=== PATIENT | female | born 1955 | race American Indian/Alaskan Native ===

== ENCOUNTER 2016-10-20 13:05 | Observation (INO) | payer MEDICARE, MEDICAID ==
[2016-10-20] MEDS ORDERED: Zolpidem 5 MG Tab PO PRN (14:34)
[2016-10-20] MEDS ORDERED: Acetaminophen 325 MG Tab PO PRN (14:34)
[2016-10-20] MEDS ORDERED: Ondansetron 4 MG Tab.DIS PO PRN (14:34)
[2016-10-20] MEDS ORDERED: Polyethylene Glycol 3350 Powder 17 GM Packet PO PRN (14:34)
[2016-10-20] MEDS ORDERED: Docusate Sodium 100 MG Cap PO PRN (14:34)
[2016-10-20] MEDS ORDERED: Sodium Chloride 0.9% 10 ML Syringe FLUSH PRN (14:34)
--- NOTE | 2016-10-20 14:34 | PCM.HP ---
[id number] Hyperglycemia, acute renal failure Source of Information: Patient, Provider (Dr. Foster) - History of Present Illness Initial Comments - Free Text/Narative: The patient is a 61-year-old lady who has a history of diabetes. She has been using Lantus and NovoLog combination. She says her blood sugars usually run in the 100 150 range. She is checking her blood sugars every 1-2 days. She does have a history of medication noncompliance but she states that she has been using her insulin as prescribed. She was seen at the clinic for regular follow-up. She says last time she checked her blood sugar was about 36 hours ago and it was 150. In the clinic her blood sugar was recorded above 500. Her creatinine has also significantly increased from prior. She denies any cough, chest pain, urinary burning. She has been eating and drinking well. - Related Data Allergies/Adverse Reactions: Allergies Allergy/AdvReac Type Severity Reaction Status Date / Time No Known Allergies Allergy Verified 10/20/16 14:24 Home Medications: Home Meds Carvedilol 3.125 mg PO BID 07/18/13 [History] DULoxetine HCl [Cymbalta] 60 mg PO BID 07/18/13 [History] Famotidine [Famotidine] 20 mg PO BID 07/18/13 [History] Insulin Aspart [NovoLOG] 14 units SUBCUT TIDMEALS 07/18/13 [History] LORazepam [Ativan] 0.5 mg PO BID 07/18/13 [History] Pregabalin [Lyrica] 75 mg PO BID 07/18/13 [History] Simvastatin [Simvastatin] 10 mg PO BEDTIME 07/18/13 [History] Acetaminophen 325 mg PO ASDIRECTED PRN 10/20/16 [History] Aspirin 81 mg PO BRK 10/20/16 [History] Clopidogrel [Plavix] 75 mg PO DAILY 10/20/16 [History] Insulin Detemir [Levemir Flextouch] 14 unit SQ BEDTIME 10/20/16 [History] traMADol [Ultram] 50 mg PO Q8H 10/20/16 [History] Past Medical History HEENT History: Reports: Impaired Vision, Sinusitis Other HEENT History: wear reading glasses Cardiovascular History: Reports: High Cholesterol, Hypertension, Pacemaker Gastrointestinal History: Reports: Bowel Obstruction 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: Neurological History: Reports: Neuropathy, Diabetic Psychiatric History: Reports: Anxiety Endocrine/Metabolic History: Reports: Diabetes, Type II Social & Family History - Family History Cardiac: Reports: High Cholesterol, Hypertension Respiratory: Reports: Asthma, COPD Other Respiratory Family Hisory: Sisters Endocrine/Metabolic: Reports: Diabetes, type II - Tobacco Use Smoking Status *Q: Never Smoker Second Hand Smoke Exposure: No - Alcohol Use Days Per Week of Alcohol Use: 0 (none) - Recreational Drug Use Recreational Drug Use: No - Living Situation & Occupation Living situation: Reports: with Family Occupation: Retired H&P Review of Systems - Review of Systems: Review Of Systems: See Below General: Denies: Fever, Chills Pulmonary: Denies: Shortness of Breath Cardiovascular: Denies: Chest Pain Gastrointestinal: Denies: Abdominal Pain, Nausea Genitourinary: Denies: Dysuria Psychiatric: Denies: Confusion Neurological: Denies: Confusion, Dizziness, Headache Exam - Exam Exam: See Below - Vital Signs Vital Signs: Last Vital Signs Temp 36.1 C 10/20/16 13:57 Pulse 75 10/20/16 13:57 Resp 20 10/20/16 13:57 BP 151/82 H 10/20/16 13:57 Pulse Ox Weight: 57.697 kg - Exam General: Alert, Oriented Neck: Supple Lungs: Clear to Auscultation Cardiovascular: Regular Rate GI/Abdominal Exam: Normal Bowel Sounds, Soft, Non-Tender Back Exam: Normal Inspection Extremities: Normal Inspection, Other (Left foot third toe tender to touch) - Patient Data Lab Results Last 24 hrs: Results for LIZETTE MCGARRY ( ) as of 10/20/2016 14:32 Ref. Range 10/20/2016 09:27 WBC Latest Ref Range: 3.60 - 11.00 K/uL 7.20 RBC Latest Ref Range: 3.80 - 5.40 M/uL 3.72 (L) Hemoglobin Latest Ref Range: 12.0 - 16.0 g/dL 11.6 (L) Hematocrit Latest Ref Range: 35.0 - 49.0 % 33.5 (L) MCV Latest Ref Range: 80.0 - 100.0 fL 89.9 MCH Latest Ref Range: 26.0 - 34.0 pg 31.1 MCHC Latest Ref Range: 32.0 - 36.0 g/dL 34.5 Platelets Latest Ref Range: 150 - 450 K/L 219 Results for LIZETTE MCGARRY ( ) as of 10/20/2016 14:32 Ref. Range 10/20/2016 09:27 BUN Latest Ref Range: 7 - 18 mg/dL 46 (H) Sodium Latest Ref Range: 136 - 145 mmol/L 129 (L) Potassium Latest Ref Range: 3.5 - 5.1 mmol/L 4.9 Chloride Latest Ref Range: 98 - 107 mmol/L 96 (L) CO2 Latest Ref Range: 21.0 - 32.0 mmol/L 27.4 SERUM GLUCOSE Latest Ref Range: 70 - 99 mg/dL 566 (HH) Creatinine Latest Ref Range: 0.6 - 1.0 mg/dL 1.8 (H) Calcium Latest Ref Range: 8.5 - 10.1 mg/dL 8.5 ANION GAP Latest Ref Range: 5.0 - 13.0 mmol/L 5.6 GFR Calculated Latest Units: mL/min/1.73 sq m 29 Cholesterol Latest Units: mg/dL 184 Triglycerides Latest Ref Range: <150 mg/dL 182 (H) HDL Latest Units: mg/dL 72 LDL Cholesterol Calculated Latest Units: mg/dL 76 Chol/HDL Ratio Unknown 2.6 *Q Meaningful Use (ADM) - VTE *Q VTE Criteria *Q: - Stroke *Q Stroke Criteria *Q: - AMI *Q AMI Criteria *Q: - Problem List (1) Hyperglycemia SNOMED Code(s): 21660333 ICD Code: R73.9 - HYPERGLYCEMIA, UNSPECIFIED Status: Acute (2) Kidney failure, acute SNOMED Code(s): 24539958 ICD Code: N17.9 - ACUTE KIDNEY FAILURE, UNSPECIFIED Status: Acute Qualifiers: Acute renal failure type: unspecified Qualified Code(s): N17.9 - Acute kidney failure, unspecified Problem List Initiated/Reviewed/Updated: Yes Assessment/Plan Comment:: Hyperglycemia in a patient with diabetes, history of noncompliance It is unclear if this is due to patient's noncompliance versus uncontrolled blood sugar that needs medication adjustment. For now I will resume on home medications. Monitor blood sugars and adjust as needed Use Lantus and Humalog combination. IV hydration. Acute renal failure Likely due to dehydration due to hyperglycemia. Will give IV fluid and follow renal function
[2016-10-20] MEDS ORDERED: traMADol 50 MG Tab PO PRN (16:26)
[2016-10-20] MEDS: Aspirin 81 MG Tab.Chew PO SCH (18:04)
[2016-10-20] MEDS: Insulin Aspart 100 Units/ML 3 ML Pen SUBCUT SCH ×2 (18:06)
[2016-10-20] MEDS: Carvedilol 3.125 MG Tab PO SCH (18:07)
[2016-10-20] MEDS ORDERED: Famotidine 20 MG Tab PO SCH (21:00)
[2016-10-20] MEDS ORDERED: Insulin Detemir 100 Units/ML 3 ML Pen SUBCUT SCH (21:00)
[2016-10-20] MEDS: LORazepam 0.5 MG Tab PO SCH (21:30)
[2016-10-20] MEDS: Pregabalin 75 MG Cap PO SCH (21:30)
[2016-10-20] MEDS: DULoxetine 30 MG Cap PO SCH (21:31)
[2016-10-20] MEDS: Simvastatin 10 MG Tab PO SCH (21:32)
[2016-10-20] MEDS: Heparin Sodium 5,000 Units/ML Vial SUBCUT SCH (21:32)
[2016-10-21] MEDS: Heparin Sodium 5,000 Units/ML Vial SUBCUT SCH ×3 (05:54→21:01)
[2016-10-21] MEDS: Insulin Aspart 100 Units/ML 3 ML Pen SUBCUT SCH ×6 (08:59→18:35)
[2016-10-21] MEDS: Famotidine 20 MG Tab PO SCH (09:08)
[2016-10-21] MEDS: LORazepam 0.5 MG Tab PO SCH ×2 (09:08→21:02)
[2016-10-21] MEDS: Pregabalin 75 MG Cap PO SCH ×2 (09:08→21:01)
[2016-10-21] MEDS: Clopidogrel 75 MG Tab PO SCH (09:08)
[2016-10-21] MEDS: Aspirin 81 MG Tab.Chew PO SCH (09:08)
[2016-10-21] MEDS: DULoxetine 30 MG Cap PO SCH ×2 (09:09→21:02)
[2016-10-21] MEDS: Sodium Chloride 0.9% 1,000 ML IV SCH ×2 (10:48→21:04)
[2016-10-21] MEDS ORDERED: Insulin Detemir 100 Units/ML 3 ML Pen SUBCUT SCH (10:49)
--- NOTE | 2016-10-21 10:49 | PCM.PN ---
- General Info Date of Service: 10/21/16 Admission Dx/Problem (Free Text): Hyperglycemia, acute renal failure Subjective Update: Feeling well, no abdominal pain, no chest pain, no shortness of breath. Has been eating okay, no nausea or vomiting. Blood sugars remained elevated. - Review of Systems General: Reports: Weakness. Denies: Fever Pulmonary: Denies: Shortness of Breath Cardiovascular: Denies: Edema Gastrointestinal: Denies: Abdominal Pain Genitourinary: Denies: Dysuria Neurological: Denies: Confusion - Patient Data Vitals - Most Recent: Last Vital Signs Temp 37.1 C 10/21/16 07:00 Pulse 77 10/21/16 07:00 Resp 20 10/21/16 07:00 BP 133/71 10/21/16 07:00 Pulse Ox 98 10/21/16 07:00 Weight - Most Recent: 57.697 kg I&O - Last 24 Hours: Intake & Output 10/20/16 10/21/16 10/21/16 22:59 06:59 14:59 Output Total 1000 800 Balance -1000 -800 Lab Results Last 24 Hours: Laboratory Results - last 24 hr 10/20/16 10/20/16 10/21/16 Range/Units 16:58 21:14 05:35 WBC 4.7 L (5.0-10.0) 10^3/uL RBC 3.67 L (4.2-5.4) 10^6/uL Hgb 11.2 L (12.0-16.0) g/dL Hct 33.0 L (37.0-47.0) % MCV 89.9 (80-100) fL MCH 30.5 (27.0-34.0) pg MCHC 33.9 (33.0-35.0) g/dL Plt Count 229 (150-450) 10^3/uL Neut % (Auto) 52.3 (42.2-75.2) % Lymph % (Auto) 35.0 (20.5-50.1) % [place]ayer % (Auto) 6.8 (2-8) % Eos % (Auto) 5.7 H (1.0-3.0) % Baso % (Auto) 0.2 (0.0-1.0) % Sodium (135-145) mmol/L Potassium (3.6-5.0) mmol/L Chloride (101-111) mmol/L Carbon Dioxide (21.0-31.0) mmol/L Anion Gap BUN (7-18) mg/dL Creatinine (0.6-1.3) mg/dL Est Cr Clr Drug Dosing mL/min Estimated GFR (MDRD) Glucose (74-105) mg/dL POC Glucose 414 H* 168 H (70-105) mg/dl Calcium (8.4-10.2) mg/dl 10/21/16 10/21/16 Range/Units 05:35 07:35 WBC (5.0-10.0) 10^3/uL RBC (4.2-5.4) 10^6/uL Hgb (12.0-16.0) g/dL Hct (37.0-47.0) % MCV (80-100) fL MCH (27.0-34.0) pg MCHC (33.0-35.0) g/dL Plt Count (150-450) 10^3/uL Neut % (Auto) (42.2-75.2) % Lymph % (Auto) (20.5-50.1) % Thayer % (Auto) (2-8) % Eos % (Auto) (1.0-3.0) % Baso % (Auto) (0.0-1.0) % Sodium 132 L (135-145) mmol/L Potassium 5.2 H (3.6-5.0) mmol/L Chloride 97 L (101-111) mmol/L Carbon Dioxide 27.0 (21.0-31.0) mmol/L Anion Gap 13.2 BUN 40 H (7-18) mg/dL Creatinine 1.6 H (0.6-1.3) mg/dL Est Cr Clr Drug Dosing 32.97 mL/min Estimated GFR (MDRD) 33 Glucose 328 H (74-105) mg/dL POC Glucose 301 H (70-105) mg/dl Calcium 8.7 (8.4-10.2) mg/dl Med Orders - Current: Current Medications Acetaminophen (Tylenol) 650 mg PO Q4H PRN PRN Reason: Pain (Mild 1-3)/fever Aspirin (Aspirin) 81 mg PO BRK [facility] Last Admin: 10/21/16 09:08 Dose: 81 mg Carvedilol (Coreg) 3.125 mg PO BIDMEALS [facility] Last Admin: 10/20/16 18:07 Dose: 3.125 mg Clopidogrel Bisulfate (Plavix) 75 mg PO DAILY [facility] Last Admin: 10/21/16 09:08 Dose: 75 mg Docusate Sodium (Colace) 100 mg PO BID PRN PRN Reason: Constipation Duloxetine HCl (Cymbalta) 60 mg PO BID [facility] Last Admin: 10/21/16 09:09 Dose: 60 mg Famotidine (Pepcid) 20 mg PO DAILY [facility] Last Admin: 10/21/16 09:08 Dose: 20 mg Heparin Sodium (Porcine) (Heparin Sodium) 5,000 units SUBCUT Q8HR [facility] Last Admin: 10/21/16 05:54 Dose: 5,000 units Sodium Chloride (Normal Saline) 1,000 mls @ 100 mls/hr IV ASDIRECTED [facility] Insulin Aspart (Novolog) 0 unit SUBCUT TIDAC [facility] PRN Reason: Protocol Last Admin: 10/21/16 08:59 Dose: 8 units Insulin Aspart (Novolog) 14 unit SUBCUT TIDMEALS [facility] Last Admin: 10/21/16 09:01 Dose: 14 units Insulin Detemir (Levemir) 14 unit SUBCUT BEDTIME [facility] Last Admin: 10/20/16 21:34 Dose: 14 units Lorazepam (Ativan) 0.5 mg PO BID [facility] Last Admin: 10/21/16 09:08 Dose: 0.5 mg Ondansetron HCl (Zofran Odt) 4 mg PO Q6H PRN PRN Reason: nausea, able to take PO Polyethylene Glycol (Miralax) 17 gm PO DAILY PRN PRN Reason: Constipation Pregabalin (Lyrica) 75 mg PO BID [facility] Last Admin: 10/21/16 09:08 Dose: 75 mg Simvastatin (Zocor) 10 mg PO BEDTIME [facility] Last Admin: 10/20/16 21:32 Dose: 10 mg Sodium Chloride (Saline Flush) 10 ml FLUSH ASDIRECTED PRN PRN Reason: Keep Vein Open Tramadol HCl (Ultram) 50 mg PO Q8H PRN PRN Reason: Pain Zolpidem Tartrate (Ambien) 5 mg PO BEDTIME PRN PRN Reason: Sleep Discontinued Medications Famotidine (Pepcid) 20 mg PO BID [facility] - Exam General: Alert, Oriented Neck: Supple Lungs: Clear to Auscultation, Normal Respiratory Effort Cardiovascular: Regular Rate, Regular Rhythm Extremities: No Pedal Edema - Problem List & Annotations (1) Hyperglycemia SNOMED Code(s): 99527738 Code(s): R73.9 - HYPERGLYCEMIA, UNSPECIFIED Status: Acute Current Visit: Yes (2) Kidney failure, acute SNOMED Code(s): 53238910 Code(s): N17.9 - ACUTE KIDNEY FAILURE, UNSPECIFIED Status: Acute Current Visit: Yes Qualifiers: Acute renal failure type: unspecified Qualified Code(s): N17.9 - Acute kidney failure, unspecified - Problem List Review Problem List Initiated/Reviewed/Updated: Yes - My Orders Last 24 Hours: My Active Orders 10/20/16 14:34 Glucose [Blood Glucose Check, Bedside] [RC] QIDACANDBED Up With Assistance [RC] ASDIRECTED Acetaminophen [Tylenol] 650 mg PO Q4H PRN Docusate Sodium [Colace] 100 mg PO BID PRN Ondansetron [Zofran ODT] 4 mg PO Q6H PRN Polyethylene Glycol 3350 [MiraLAX] 17 gm PO DAILY PRN Sodium Chloride 0.9% [Saline Flush] 10 ml FLUSH ASDIRECTED PRN Zolpidem [Ambien] 5 mg PO BEDTIME PRN Peripheral IV Insertion Adult [OM.PC] Routine Resuscitation Status Routine 10/20/16 14:35 Oxygen Therapy [RC] PRN VTE/DVT Education [RC] PER UNIT ROUTINE Vital Signs [RC] 03,07,11,15,19,23 10/20/16 14:36 Antiembolic Hose [OM.PC] Per Unit Routine 10/20/16 14:37 Antiembolic Devices [RC] PER UNIT ROUTINE Peripheral IV Care [RC] 08,20 10/20/16 14:45 Sodium Chloride 0.9% [Normal Saline] 1,000 ml IV ASDIRECTED 10/20/16 16:26 traMADol [Ultram] 50 mg PO Q8H PRN 10/20/16 16:30 Aspirin 81 mg PO BRK 10/20/16 17:00 Insulin Aspart [NovoLOG] See Protocol SUBCUT TIDAC 10/20/16 18:00 Carvedilol [Coreg] 3.125 mg PO BIDMEALS Insulin Aspart [NovoLOG] 14 unit SUBCUT TIDMEALS 10/20/16 19:04 Admission Status [Patient Status] [ADT] Routine 10/20/16 21:00 DULoxetine [Cymbalta] 60 mg PO BID Insulin Detemir [Levemir] 14 unit SUBCUT BEDTIME LORazepam [Ativan] 0.5 mg PO BID Pregabalin [Lyrica] 75 mg PO BID Simvastatin [Zocor] 10 mg PO BEDTIME 10/20/16 22:00 Heparin Sodium 5,000 units SUBCUT Q8HR 10/20/16 Dinner Consistent Carbohydrate Diet [DIET] 10/21/16 09:00 Clopidogrel [Plavix] 75 mg PO DAILY Famotidine [Pepcid] 20 mg PO DAILY 10/22/16 05:15 BASIC METABOLIC PANEL,BMP [CHEM] AM CBC WITH AUTO DIFF [HEME] AM 10/22/16 11:00 CBC WITH AUTO DIFF [HEME] Timed - Plan Plan:: Hyperglycemia in a patient with diabetes, history of noncompliance It is unclear if this is due to patient's noncompliance versus uncontrolled blood sugar that needs medication adjustment. The patient says her blood sugars usually run in the 100 250 range. The last hemoglobin A1c of 12 would indicate different. For now I will continue on home novolog dose. increase Levemir to 20 units Monitor blood sugars and adjust as needed IV hydration. Acute renal failure Likely due to dehydration due to hyperglycemia. Will give IV fluid and follow renal function Hyperkalemia Will treat with insulin, IV fluids Recheck in a few hours and in the morning Coronary artery disease Status post bypass surgery Treat with aspirin, Plavix, Coreg, statin DVT prophylaxis will be with subcutaneous heparin
[2016-10-21] MEDS: Carvedilol 3.125 MG Tab PO SCH ×2 (11:02→21:01)
[2016-10-21] MEDS ORDERED: Insulin Aspart 100 Units/ML 3 ML Pen SUBCUT ONE (19:31)
[2016-10-21] MEDS: Simvastatin 10 MG Tab PO SCH (21:03)
[2016-10-22] MEDS: Heparin Sodium 5,000 Units/ML Vial SUBCUT SCH ×2 (05:29→14:46)
[2016-10-22] MEDS: Sodium Chloride 0.9% 1,000 ML IV SCH (07:20)
[2016-10-22] MEDS: Insulin Aspart 100 Units/ML 3 ML Pen SUBCUT SCH ×4 (08:05→12:51)
[2016-10-22] MEDS: Clopidogrel 75 MG Tab PO SCH (08:41)
[2016-10-22] MEDS: Aspirin 81 MG Tab.Chew PO SCH (08:41)
[2016-10-22] MEDS: Pregabalin 75 MG Cap PO SCH (08:41)
[2016-10-22] MEDS: Famotidine 20 MG Tab PO SCH (08:41)
[2016-10-22] MEDS: LORazepam 0.5 MG Tab PO SCH (08:42)
[2016-10-22] MEDS: DULoxetine 30 MG Cap PO SCH (08:43)
[2016-10-22] MEDS: Carvedilol 3.125 MG Tab PO SCH (08:44)
[2016-10-22 11:21] VITALS: BP 136/75
--- NOTE | 2016-10-22 12:25 | PCM.DCSUM1 ---
Discharge Summary - Hospital Course Free Text/Narrative:: Hyperglycemia in a patient with diabetes, history of noncompliance It is unclear if this is due to patient's noncompliance versus uncontrolled blood sugar that needs medication adjustment. The patient says her blood sugars usually run in the 100 250 range. The last hemoglobin A1c of 12 would indicate different. For better BS control we increased novolog and Levemir dose. Try to be conservative to prevent sudden changes if compliance is a question. Encouraged to have BS diary. 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 Acute renal failure Likely due to dehydration due to hyperglycemia. improved with IV fluid follow up periodically Hyperkalemia Treated with insulin, IV fluids might have related to hemolysis Coronary artery disease Status post bypass surgery Treat with aspirin, Plavix, Coreg, statin anxiety associated with hypertension noted follow as out pt - Discharge Data Discharge Date: 10/22/16 Discharge Disposition: Home, Self-Care 01 Condition: Good - Discharge Diagnosis/Problem(s) (1) Hyperglycemia SNOMED Code(s): 45801406 ICD Code: R73.9 - HYPERGLYCEMIA, UNSPECIFIED Status: Acute Current Visit : Yes (2) Kidney failure, acute SNOMED Code(s): 36381366 ICD Code: N17.9 - ACUTE KIDNEY FAILURE, UNSPECIFIED Status: Acute Current Visit: Yes Qualifiers: Acute renal failure type: unspecified Qualified Code(s): N17.9 - Acute kidney failure, unspecified (3) HTN (hypertension) SNOMED Code(s): 11040600 ICD Code: I10 - ESSENTIAL (PRIMARY) HYPERTENSION Status: Acute Current Visit: Yes (4) CAD (coronary artery disease) SNOMED Code(s): 09587978 ICD Code: I25.10 - ATHSCL HEART DISEASE OF [place] CORONARY ARTERY W/O ANG PCTRS Status: Acute Current Visit: Yes (5) Anxiety SNOMED Code(s): 68970660 ICD Code: F41.9 - ANXIETY DISORDER, UNSPECIFIED Status: Acute Current Visit: Yes - Discharge Plan Home Medications: Home Meds Carvedilol 3.125 mg PO BID 07/18/13 [History] DULoxetine HCl [Cymbalta] 60 mg PO BID 07/18/13 [History] Famotidine 20 mg PO BID 07/18/13 [History] LORazepam [Ativan] 0.5 mg PO BID 07/18/13 [History] Pregabalin [Lyrica] 75 mg PO BID 07/18/13 [History] Simvastatin 10 mg PO BEDTIME 07/18/13 [History] Acetaminophen 325 mg PO ASDIRECTED PRN 10/20/16 [History] Aspirin 81 mg PO BRK 10/20/16 [History] Clopidogrel [Plavix] 75 mg PO DAILY 10/20/16 [History] traMADol [Ultram] 50 mg PO Q8H 10/20/16 [History] Insulin Aspart [NovoLOG] 17 unit SUBCUT TIDMEALS pen 10/22/16 [Rx] Insulin Detemir [Levemir] 20 unit SUBCUT BEDTIME pen 10/22/16 [Rx] - Discharge Summary/Plan Comment DC Time >30 min.: No - Patient Data Vitals - Most Recent: Last Vital Signs Temp 36.7 C 10/22/16 11:00 Pulse 77 10/22/16 11:00 Resp 20 10/22/16 11:00 BP 136/75 10/22/16 11:00 Pulse Ox 100 10/22/16 11:00 Weight - Most Recent: 57.697 kg I&O - Last 24 hours: Intake & Output 10/21/16 10/22/16 10/22/16 22:59 06:59 14:59 Intake Total 2448 1261 Output Total 900 1000 Balance 1548 261 Lab Results - Last 24 hrs: Laboratory Results - last 24 hr 10/21/16 10/21/16 10/21/16 Range/Units 17:19 19:00 21:00 WBC (5.0-10.0) 10^3/uL RBC (4.2-5.4) 10^6/uL Hgb (12.0-16.0) g/dL Hct (37.0-47.0) % MCV (80-100) fL MCH (27.0-34.0) pg MCHC (33.0-35.0) g/dL Plt Count (150-450) 10^3/uL Neut % (Auto) (42.2-75.2) % Lymph % (Auto) (20.5-50.1) % Nolan % (Auto) (2-8) % Eos % (Auto) (1.0-3.0) % Baso % (Auto) (0.0-1.0) % Sodium 132 L (135-145) mmol/L Potassium 4.3 (3.6-5.0) mmol/L Chloride 99 L (101-111) mmol/L Carbon Dioxide 26.0 (21.0-31.0) mmol/L Anion Gap 11.3 BUN 38 H (7-18) mg/dL Creatinine 1.7 H (0.6-1.3) mg/dL Est Cr Clr Drug Dosing 31.03 mL/min Estimated GFR (MDRD) 31 Glucose 456 H* (74-105) mg/dL POC Glucose 351 H 286 H (70-105) mg/dl Calcium 8.0 L (8.4-10.2) mg/dl 10/22/16 10/22/16 10/22/16 Range/Units 05:45 05:45 07:44 WBC 5.4 (5.0-10.0) 10^3/uL RBC 3.74 L (4.2-5.4) 10^6/uL Hgb 11.5 L (12.0-16.0) g/dL Hct 33.8 L (37.0-47.0) % MCV 90.4 (80-100) fL MCH 30.7 (27.0-34.0) pg MCHC 34.0 (33.0-35.0) g/dL Plt Count 216 (150-450) 10^3/uL Neut % (Auto) 44.6 (42.2-75.2) % Lymph % (Auto) 39.4 (20.5-50.1) % Nolan % (Auto) 9.3 H (2-8) % Eos % (Auto) 6.5 H (1.0-3.0) % Baso % (Auto) 0.2 (0.0-1.0) % Sodium 139 (135-145) mmol/L Potassium 5.0 (3.6-5.0) mmol/L Chloride 103 (101-111) mmol/L Carbon Dioxide 27.0 (21.0-31.0) mmol/L Anion Gap 14.0 BUN 31 H (7-18) mg/dL Creatinine 1.4 H (0.6-1.3) mg/dL Est Cr Clr Drug Dosing 37.68 mL/min Estimated GFR (MDRD) 38 Glucose 248 H (74-105) mg/dL POC Glucose 207 H (70-105) mg/dl Calcium 8.6 (8.4-10.2) mg/dl 10/22/16 Range/Units 10:59 WBC (5.0-10.0) 10^3/uL RBC (4.2-5.4) 10^6/uL Hgb (12.0-16.0) g/dL Hct (37.0-47.0) % MCV (80-100) fL MCH (27.0-34.0) pg MCHC (33.0-35.0) g/dL Plt Count (150-450) 10^3/uL Neut % (Auto) (42.2-75.2) % Lymph % (Auto) (20.5-50.1) % Nolan % (Auto) (2-8) % Eos % (Auto) (1.0-3.0) % Baso % (Auto) (0.0-1.0) % Sodium (135-145) mmol/L Potassium (3.6-5.0) mmol/L Chloride (101-111) mmol/L Carbon Dioxide (21.0-31.0) mmol/L Anion Gap BUN (7-18) mg/dL Creatinine (0.6-1.3) mg/dL Est Cr Clr Drug Dosing mL/min Estimated GFR (MDRD) Glucose (74-105) mg/dL POC Glucose 294 H (70-105) mg/dl Calcium (8.4-10.2) mg/dl Med Orders - Current: Current Medications Acetaminophen (Tylenol) 650 mg PO Q4H PRN PRN Reason: Pain (Mild 1-3)/fever Last Admin: 10/22/16 08:53 Dose: 650 mg Aspirin (Aspirin) 81 mg PO BRK [facility] Last Admin: 10/22/16 08:41 Dose: 81 mg Carvedilol (Coreg) 3.125 mg PO BIDMEALS [facility] Last Admin: 10/22/16 08:44 Dose: 3.125 mg Clopidogrel Bisulfate (Plavix) 75 mg PO DAILY [facility] Last Admin: 10/22/16 08:41 Dose: 75 mg Docusate Sodium (Colace) 100 mg PO BID PRN PRN Reason: Constipation Duloxetine HCl (Cymbalta) 60 mg PO BID [facility] Last Admin: 10/22/16 08:43 Dose: 60 mg Famotidine (Pepcid) 20 mg PO DAILY [facility] Last Admin: 10/22/16 08:41 Dose: 20 mg Heparin Sodium (Porcine) (Heparin Sodium) 5,000 units SUBCUT Q8HR [facility] Last Admin: 10/22/16 05:29 Dose: 5,000 units Sodium Chloride (Normal Saline) 1,000 mls @ 100 mls/hr IV ASDIRECTED [facility] Last Admin: 10/22/16 07:20 Dose: 100 mls/hr Insulin Aspart (Novolog) 0 unit SUBCUT TIDAC [facility] PRN Reason: Protocol Last Admin: 10/22/16 08:05 Dose: 4 units Insulin Aspart (Novolog) 17 unit SUBCUT TIDMEALS [facility] Last Admin: 10/22/16 08:07 Dose: 17 units Insulin Detemir (Levemir) 20 unit SUBCUT BEDTIME [facility] Last Admin: 10/21/16 21:15 Dose: 20 units Lorazepam (Ativan) 0.5 mg PO BID [facility] Last Admin: 10/22/16 08:42 Dose: 0.5 mg Ondansetron HCl (Zofran Odt) 4 mg PO Q6H PRN PRN Reason: nausea, able to take PO Polyethylene Glycol (Miralax) 17 gm PO DAILY PRN PRN Reason: Constipation Pregabalin (Lyrica) 75 mg PO BID [facility] Last Admin: 10/22/16 08:41 Dose: 75 mg Simvastatin (Zocor) 10 mg PO BEDTIME [facility] Last Admin: 10/21/16 21:03 Dose: 10 mg Sodium Chloride (Saline Flush) 10 ml FLUSH ASDIRECTED PRN PRN Reason: Keep Vein Open Tramadol HCl (Ultram) 50 mg PO Q8H PRN PRN Reason: Pain Last Admin: 10/21/16 14:32 Dose: 50 mg Zolpidem Tartrate (Ambien) 5 mg PO BEDTIME PRN PRN Reason: Sleep Discontinued Medications Famotidine (Pepcid) 20 mg PO BID [facility] Insulin Aspart (Novolog) 14 unit SUBCUT TIDMEALS [facility] Last Admin: 10/21/16 18:35 Dose: 14 units Insulin Aspart (Novolog) 10 unit SUBCUT ONETIME ONE Stop: 10/21/16 19:32 Last Admin: 10/21/16 19:48 Dose: 10 units Insulin Detemir (Levemir) 14 unit SUBCUT BEDTIME [facility] Last Admin: 10/20/16 21:34 Dose: 14 units *Q Meaningful Use (DIS) - VTE *Q VTE Criteria *Q: - Stroke *Q Stroke Criteria *Q: - AMI *Q AMI Criteria *Q:
== END 2016-10-22 15:10 | disposition home or self-care (01) ==
LOC: UNDOADMIN 13:43 → DL.MS 13:43 → UNDOADMIN 14:01 → DL.MS 14:01 → INTOOBSV 19:04
PROVIDERS: ADMIT Internal Medicine; ATTEND Internal Medicine
DX: E11.65 Type 2 diabetes mellitus with hyperglycemia (principal); E87.6 Hypokalemia; E86.0 Dehydration; N17.9 Acute kidney failure, unspecified; I25.10 Atherosclerotic heart disease of native coronary artery without angina pectoris; I10 Essential (primary) hypertension; F41.9 Anxiety disorder, unspecified; E78.00 Pure hypercholesterolemia, unspecified; E11.40 Type 2 diabetes mellitus with diabetic neuropathy, unspecified; J44.9 Chronic obstructive pulmonary disease, unspecified; J45.909 Unspecified asthma, uncomplicated; Z95.1 Presence of aortocoronary bypass graft; Z95.0 Presence of cardiac pacemaker; Z79.82 Long term (current) use of aspirin; Z79.02 Long term (current) use of antithrombotics/antiplatelets; Z79.4 Long term (current) use of insulin; Z79.899 Other long term (current) drug therapy
CPT/HCPCS: 36415; 80048; 82962; 85025; A9270; J1644; J1815; J7030; 96372; 99217; 99220; 99225; G0378; G0379

== ENCOUNTER 2017-02-21 14:57 | Emergency (ER) | payer MEDICARE, MEDICAID ==
[2017-02-21] MEDS ORDERED: Insulin Aspart 100 Units/ML 3 ML Pen SUBCUT ONE (15:22)
--- NOTE | 2017-02-21 15:23 | EDM.PDOC ---
ED HPI GENERAL MEDICAL PROBLEM - General Chief Complaint: Diabetic Complaint Stated Complaint: DIABETIC, SUGAR TO HIGH Time Seen by Provider: 02/21/17 15:19 Source of Information: Reports: Patient, Provider History Limitations: Reports: No Limitations - History of Present Illness INITIAL COMMENTS - FREE TEXT/NARRATIVE: 61 yo [place] Female w/ PMHx. DM and Cataracts was in PCP office today for Cataract surgery clearance and noted o have elevated BS higher than 500. Pt. had fasted for Pre-Op Blood test. Pt. states she has not felt well X one week ( tired and weak). No Fever and No Headache Onset: Today Onset Date: 02/21/17 Onset Time: 13:00 Duration: Hour(s): Location: Reports: Generalized Severity: Moderate Improves with: Reports: None Worsens with: Reports: None Associated Symptoms: Reports: No Other Symptoms Generalized Pain Score (Numeric/FACES): 6 - Related Data Allergies Allergy/AdvReac Type Severity Reaction Status Date / Time cephalexin Allergy Hives Verified 02/21/17 15:14 lisinopril Allergy Cough Verified 02/21/17 15:14 Home Meds: Home Meds DULoxetine HCl [Cymbalta] 60 mg PO BID 07/18/13 [History] Famotidine 20 mg PO BID 07/18/13 [History] Simvastatin 10 mg PO BEDTIME 07/18/13 [History] Acetaminophen 325 mg PO ASDIRECTED PRN 10/20/16 [History] Aspirin 81 mg PO BRK 10/20/16 [History] Clopidogrel [Plavix] 75 mg PO DAILY 10/20/16 [History] Carvedilol [Coreg] 25 mg PO BID 02/21/17 [History] Insulin Aspart [NovoLOG] 14 unit SUBCUT TIDMEALS 02/21/17 [History] Insulin Detemir [Levemir] 14 unit SUBCUT BEDTIME 02/21/17 [History] Pregabalin [Lyrica] 25 mg PO BID 02/21/17 [History] Past Medical History HEENT History: Reports: Impaired Vision, Sinusitis Other HEENT History: wear reading glasses Cardiovascular History: Reports: High Cholesterol, Hypertension, Pacemaker Gastrointestinal History: Reports: Bowel Obstruction Genitourinary History: Reports: None 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: Musculoskeletal History: Reports: Osteoarthritis Neurological History: Reports: Neuropathy, Diabetic Psychiatric History: Reports: Anxiety Endocrine/Metabolic History: Reports: Diabetes, Type II Hematologic History: Reports: Anemia Oncologic (Cancer) History: Reports: None - Infectious Disease History Infectious Disease History: Reports: None - Past Surgical History HEENT Surgical History: Reports: Cataract Surgery Cardiovascular Surgical History: Reports: Coronary Artery Bypass, Other (See Below) Other Cardiovascular Surgeries/Procedures: quadruple GI Surgical History: Reports: Colonoscopy, EGD Female Surgical History: Reports: None Musculoskeletal Surgical History: Reports: Other (See Below) Other Musculoskeletal Surgeries/Procedures:: right ankle - plates/pins, deformity Social & Family History - Family History Family Medical History: Noncontributory Cardiac: Reports: High Cholesterol, Hypertension Respiratory: Reports: Asthma, COPD Other Respiratory Family Hisory: Sisters Endocrine/Metabolic: Reports: Diabetes, type II - Tobacco Use Smoking Status *Q: Never Smoker Second Hand Smoke Exposure: No - Caffeine Use Caffeine Use: Reports: Coffee, Soda, Tea - Alcohol Use Days Per Week of Alcohol Use: 0 (none) - Recreational Drug Use Recreational Drug Use: No - Living Situation & Occupation Living situation: Reports: with Family Occupation: Retired ED ROS GENERAL - Review of Systems Review Of Systems: See Below Constitutional: Reports: Malaise, Weakness, Fatigue HEENT: Reports: No Symptoms Respiratory: Reports: No Symptoms Cardiovascular: Reports: No Symptoms Endocrine: Reports: No Symptoms GI/Abdominal: Reports: No Symptoms : Reports: No Symptoms Musculoskeletal: Reports: No Symptoms Skin: Reports: No Symptoms Neurological: Reports: Weakness Psychiatric: Reports: No Symptoms Hematologic/Lymphatic: Reports: No Symptoms Immunologic: Reports: No Symptoms ED EXAM GENERAL NO PERIP PULSE - Physical Exam Exam: See Below Exam Limited By: No Limitations General Appearance: Alert, No Apparent Distress, Lethargic Eye Exam: Bilateral Eye: EOMI, PERRL Ears: Normal External Exam Nose: Normal Inspection Throat/Mouth: Normal Inspection, Normal Lips Head: Atraumatic, Normocephalic Neck: Normal Inspection, Supple, Non-Tender Respiratory/Chest: No Respiratory Distress, Lungs Clear Cardiovascular: Normal Peripheral Pulses, Regular Rate, Rhythm GI/Abdominal: Normal Bowel Sounds, Soft Back Exam: Normal Inspection, Full Range of Motion Extremities: Normal Inspection, Normal Range of Motion, Non-Tender Neurological: Alert, Oriented, CN II-XII Intact, Normal Cognition, Normal Gait Psychiatric: Normal Affect Skin Exam: Warm, Intact Lymphatic: No Adenopathy Course - Vital Signs Last Recorded V/S: Last Vital Signs Temp 36.4 C 02/21/17 16:25 Pulse 72 02/21/17 16:25 Resp 16 02/21/17 16:25 BP 187/82 H 02/21/17 16:25 Pulse Ox 96 02/21/17 16:25 - Orders/Labs/Meds Orders: Active Orders 24 hr Category Date Time Status Blood Glucose Check, Bedside [RC] ONETIME Care 02/21/17 15:18 Active CULTURE URINE [RM] Stat Lab 02/21/17 17:23 Ordered OSMOLALITY - URINE Stat Lab 02/21/17 15:23 Received Sodium Chloride 0.9% [Normal Saline] 1,000 ml Med 02/21/17 15:30 Active IV ASDIRECTED Medication Orders Sodium Chloride (Normal Saline) 1,000 mls @ 150 mls/hr IV ASDIRECTED ROSLYN Last Admin: 02/21/17 15:41 Dose: 150 mls/hr Labs: Laboratory Tests 02/21/17 02/21/17 02/21/17 Range/Units 15:10 15:23 15:39 POC Glucose 474 H* (70-105) mg/dl Urine Color Yellow (YELLOW) Urine Appearance Slightly cloudy (CLEAR) Urine pH 6.0 (5.0-9.0) Ur Specific [place] 1.015 (1.005-1.030) Urine Protein >=300 H (NEGATIVE) Urine Glucose (UA) 500 H (NEGATIVE) Urine Ketones Negative (NEGATIVE) Urine Occult Blood Trace-lysed H (NEGATIVE) Urine Nitrite Negative (NEGATIVE) Urine Bilirubin Negative (NEGATIVE) Urine Urobilinogen 0.2 (0.2-1.0) mg/dL Ur Leukocyte Esterase Trace H (NEGATIVE) Urine RBC 0-5 /HPF Urine WBC 50-75 H (0-5/HPF) /HPF Ur Epithelial Cells Few /HPF Urine Bacteria Few (0-FEW/HPF) /HPF Ketones Negative Meds: Medications Generic Name Dose Route Start Last Admin Trade Name Freq PRN Reason Stop Dose Admin Sodium Chloride 1,000 mls @ 150 mls/hr 02/21/17 15:30 02/21/17 15:41 Normal Saline IV 150 mls/hr ASDIRECTED ROSLYN Administration Discontinued Medications Generic Name Dose Route Start Last Admin Trade Name Freq PRN Reason Stop Dose Admin Insulin Aspart 5 unit 11/29/17 15:22 02/21/17 15:40 Novolog SUBCUT 02/21/17 15:23 5 units ONETIME ONE Administration Levofloxacin 500 mg 02/21/17 16:38 02/21/17 17:23 Levaquin PO 02/21/17 16:39 500 mg ONETIME ONE Administration Departure - Departure Time of Disposition: 17:31 Disposition: Home, Self-Care 01 Condition: Good Clinical Impression: Hyperglycemia due to type 2 diabetes mellitus Qualifiers: Diabetes mellitus long-term insulin use: with long-term use Qualified Code(s): E11.65 - Type 2 diabetes mellitus with hyperglycemia; Z79.4 - care home (current ) use of insulin; 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; Z79.4 - care home (current) use of insulin; Z79.4 - care home (current) use of insulin UTI (urinary tract infection) Qualifiers: Urinary tract infection type: acute cystitis Hematuria presence: with hematuria Qualified Code(s): N30.01 - Acute cystitis with hematuria - Discharge Information Forms: ED Department Discharge Additional Instructions: Rest Increase intake of WATER Eat your meals as advised by your PCP Take your Insulin as prescribed by your PCP For your Urinary Tract Infection: LEVAQUIN 500mg QD # 6 F/U w/ PCP - My Orders Last 24 Hours: My Active Orders 02/21/17 15:18 Blood Glucose Check, Bedside [RC] ONETIME 02/21/17 15:23 OSMOLALITY - URINE Stat 02/21/17 15:30 Sodium Chloride 0.9% [Normal Saline] 1,000 ml IV ASDIRECTED 02/21/17 17:23 CULTURE URINE [RM] Stat - Assessment/Plan Last 24 Hours: My Active Orders 02/21/17 15:18 Blood Glucose Check, Bedside [RC] ONETIME 02/21/17 15:23 OSMOLALITY - URINE Stat 02/21/17 15:30 Sodium Chloride 0.9% [Normal Saline] 1,000 ml IV ASDIRECTED 02/21/17 17:23 CULTURE URINE [RM] Stat
[2017-02-21] MEDS ORDERED: Sodium Chloride 0.9% 1,000 ML IV SCH (15:30)
[2017-02-21] MEDS ORDERED: Levofloxacin 500 MG Tab PO ONE (16:38)
[2017-02-21 17:38] VITALS: BP 183/76
== END 2017-02-21 17:54 | disposition home or self-care (01) ==
LOC: DL.ED 14:57
DX: E11.65 Type 2 diabetes mellitus with hyperglycemia (principal); N30.01 Acute cystitis with hematuria; I10 Essential (primary) hypertension; E78.00 Pure hypercholesterolemia, unspecified; E11.40 Type 2 diabetes mellitus with diabetic neuropathy, unspecified; Z79.82 Long term (current) use of aspirin; Z79.4 Long term (current) use of insulin; Z79.899 Other long term (current) drug therapy; Z79.02 Long term (current) use of antithrombotics/antiplatelets; Z88.1 Allergy status to other antibiotic agents; Z88.8 Allergy status to other drugs, medicaments and biological substances
CPT/HCPCS: 81001; 82009; 82962; 83935; 87086; 96365; 96366; 96372; 99283; A9270; J1815; J7030; 36415; 87088; 87186

== ENCOUNTER 2017-06-21 20:11 | Emergency (ER) | payer MEDICARE, MEDICAID ==
--- NOTE | 2017-06-21 20:30 | EDM.PDOC ---
ED HPI GENERAL MEDICAL PROBLEM - General Chief Complaint: Gastrointestinal Problem Stated Complaint: BY [facility] Time Seen by Provider: 06/21/17 20:16 Source of Information: Reports: Patient History Limitations: Reports: No Limitations - History of Present Illness INITIAL COMMENTS - FREE TEXT/NARRATIVE: started vomiting yesterday today had chunks looking like liver, also BS been hard to control EMS got 378. 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 Lower Abdomen Pain Score (Numeric/FACES): 6 - Related Data Allergies Allergy/AdvReac Type Severity Reaction Status Date / Time cephalexin Allergy Hives Verified 06/21/17 20:18 lisinopril AdvReac Cough Verified 06/21/17 20:18 dust AdvReac Sneezing Uncoded 06/21/17 20:18 Home Meds: Home Meds DULoxetine HCl [Cymbalta] 60 mg PO BID 07/18/13 [History] Famotidine 20 mg PO BID 07/18/13 [History] Simvastatin 10 mg PO BEDTIME 07/18/13 [History] Acetaminophen 325 mg PO ASDIRECTED PRN 10/20/16 [History] Aspirin 81 mg PO BRK 10/20/16 [History] Clopidogrel [Plavix] 75 mg PO DAILY 10/20/16 [History] Carvedilol [Coreg] 25 mg PO BID 02/21/17 [History] Insulin Aspart [NovoLOG] 14 unit SUBCUT TIDMEALS 02/21/17 [History] Insulin Detemir [Levemir] 14 unit SUBCUT BEDTIME 02/21/17 [History] Pregabalin [Lyrica] 25 mg PO BID 02/21/17 [History] Past Medical History HEENT History: Reports: Cataract, Impaired Vision, Sinusitis, Other (See Below) Other HEENT History: wear reading glasses. 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: Musculoskeletal History: Reports: Arthritis, Fracture, Osteoarthritis, Other ( See Below) Other Musculoskeletal History: chronic generalized pain Neurological History: Reports: Neuropathy, Diabetic Psychiatric History: Reports: Anxiety, Depression Other Psychiatric History: recovering alcoholic Endocrine/Metabolic History: Reports: Diabetes, Type II, Hyperparathyroidism Hematologic History: Reports: Anemia, Blood Transfusion(s), Iron Deficiency Oncologic (Cancer) History: Reports: None Dermatologic History: Reports: Cellulitis - Infectious Disease History Infectious Disease History: Reports: None - Past Surgical History HEENT Surgical History: Reports: Cataract Surgery Cardiovascular Surgical History: Reports: Coronary Artery Bypass, Pacer, Other ( See Below) Other Cardiovascular Surgeries/Procedures: quadruple GI Surgical History: Reports: Colonoscopy, EGD Female Surgical History: Reports: None Musculoskeletal Surgical History: Reports: Other (See Below) Other Musculoskeletal Surgeries/Procedures:: right ankle - plates/pins, deformity Social & Family History - Family History Family Medical History: Noncontributory Cardiac: Reports: High Cholesterol, Hypertension Respiratory: Reports: Asthma, COPD Other Respiratory Family Hisory: Sisters Endocrine/Metabolic: Reports: Diabetes, type II - Tobacco Use Smoking Status *Q: Former Smoker Used Tobacco, but Quit: Yes Month/Year Tobacco Last Used: 1997 Second Hand Smoke Exposure: No - Caffeine Use Caffeine Use: Reports: Coffee, Soda, Tea - Alcohol Use Days Per Week of Alcohol Use: 0 - Recreational Drug Use Recreational Drug Use: No - Living Situation & Occupation Living situation: Reports: with Family Occupation: Retired ED ROS GENERAL - Review of Systems Review Of Systems: ROS reveals no pertinent complaints other than HPI. ED EXAM, GI/ABD - Physical Exam Exam: See Below Exam Limited By: No Limitations General Appearance: Alert, WD/WN, No Apparent Distress, Other (minimal distress , ) Ears: Hearing Grossly Normal Throat/Mouth: Normal Voice, No Airway Compromise Head: Atraumatic Neck: Non-Tender, Full Range of Motion Respiratory/Chest: No Respiratory Distress Cardiovascular: Regular Rate, Rhythm GI/Abdominal Exam: Soft, Non-Tender Rectal (Female) Exam: Normal Exam, Normal Rectal Tone Neurological: Alert, Oriented, Normal Cognition, No Motor/Sensory Deficits Psychiatric: Normal Affect, Normal Mood Skin Exam: Warm, Dry, Normal Color Lymphatic: No Adenopathy Course - Vital Signs Last Recorded V/S: Last Vital Signs Temp 36.2 C 06/21/17 20:15 Pulse 100 06/21/17 20:59 Resp 20 06/21/17 20:59 BP 199/89 H 06/21/17 20:59 Pulse Ox 98 06/21/17 20:59 - Orders/Labs/Meds Labs: Laboratory Tests 06/21/17 06/21/17 06/21/17 Range/Units 20:23 20:23 20:23 WBC 5.0 (5.0-10.0) 10^3/uL RBC 3.76 L (4.2-5.4) 10^6/uL Hgb 11.5 L (12.0-16.0) g/dL Hct 33.7 L (37.0-47.0) % MCV 89.6 (80-100) fL MCH 30.6 (27.0-34.0) pg MCHC 34.1 (33.0-35.0) g/dL Plt Count 251 (150-450) 10^3/uL Neut % (Auto) 82.1 H (42.2-75.2) % Lymph % (Auto) 12.5 L (20.5-50.1) % [place] % (Auto) 4.8 (2-8) % Eos % (Auto) 0.2 L (1.0-3.0) % Baso % (Auto) 0.4 (0.0-1.0) % PT 9.8 (9.0-12.0) SEC INR 1.0 (0.9-1.2) APTT 21.9 L (22.0-34.0) SEC Sodium 137 (135-145) mmol/L Potassium 3.6 (3.6-5.0) mmol/L Chloride 98 L (101-111) mmol/L Carbon Dioxide 30.0 (21.0-31.0) mmol/L Anion Gap 12.6 BUN 23 H (7-18) mg/dL Creatinine 1.9 H (0.6-1.3) mg/dL Est Cr Clr Drug Dosing 27.76 mL/min Estimated GFR (MDRD) 27 BUN/Creatinine Ratio 12.10 Glucose 393 H (74-105) mg/dL Calcium 8.2 L (8.4-10.2) mg/dl Total Bilirubin 0.5 (0.2-1.0) mg/dL AST 24 (10-42) IU/L ALT 14 (10-60) IU/L Alkaline Phosphatase 110 (42-121) IU/L Total Protein 6.1 L (6.7-8.2) g/dl Albumin 2.0 L (3.2-5.5) g/dl Globulin 4.1 Albumin/Globulin Ratio 0.49 Ketones Positive Meds: Medications Discontinued Medications Generic Name Dose Route Start Last Admin Trade Name Danielq PRN Reason Stop Dose Admin Insulin Human Regular 5 unit 06/21/17 21:31 Humulin R IV 06/21/17 21:32 ONETIME ONE - Re-Assessments/Exams Free Text/Narrative Re-Assessment/Exam: 06/21/17 21:[address] Lepe @ who kindly accepted pt. Departure - Departure Time of Disposition: 21:34 Disposition: DC/Tfer to Acute Hospital 02 Condition: Fair Clinical Impression: Upper GI bleeding, Hyperglycemia - Discharge Information Forms: Interfacility Transfer [facility]
[2017-06-21 20:54] LABS: CHLORIDE,CL 98 mmol/L (101-111); SODIUM,NA 137 mmol/L (135-145)
[2017-06-21 21:01] VITALS: BP 199/89
[2017-06-21] MEDS ORDERED: Insulin Regular, Human 100 Units/ML 3 ML Vial IV ONE (21:31)
== END 2017-06-21 22:05 ==
LOC: DL.ED 20:11
DX: K92.2 Gastrointestinal hemorrhage, unspecified (principal); E11.65 Type 2 diabetes mellitus with hyperglycemia; I50.9 Heart failure, unspecified; I13.0 Hypertensive heart and chronic kidney disease with heart failure and stage 1 through stage 4 chronic kidney disease, or unspecified chronic kidney disease; E11.22 Type 2 diabetes mellitus with diabetic chronic kidney disease; N18.3 Chronic kidney disease, stage 3 (moderate); E78.00 Pure hypercholesterolemia, unspecified; Z88.1 Allergy status to other antibiotic agents; Z88.8 Allergy status to other drugs, medicaments and biological substances; Z79.899 Other long term (current) drug therapy; Z79.4 Long term (current) use of insulin; Z87.891 Personal history of nicotine dependence
CPT/HCPCS: 36415; 80053; 82009; 82272; 85025; 85610; 85730; 96374; 99285; J1815; 99283

== ENCOUNTER 2017-07-02 17:12 | Emergency (ER) | payer MEDICARE, MEDICAID ==
[2017-07-02] MEDS ORDERED: Aspirin 81 MG Tab.Chew PO ONE (17:21)
[2017-07-02] MEDS ORDERED: Sodium Chloride 0.9% 10 ML Syringe FLUSH PRN (17:21)
[2017-07-02 17:52] LABS: CHLORIDE,CL 102 mmol/L (101-111); SODIUM,NA 134 mmol/L (135-145)
[2017-07-02] MEDS ORDERED: Furosemide 40 MG/4 ML VIAL IVPUSH ONE (17:55)
[2017-07-02] MEDS ORDERED: Labetalol 20 MG/4 ML Syringe IVPUSH ONE (18:51)
--- NOTE | 2017-07-02 19:18 | EDM.PDOC ---
Scribed by Rosemarie Syed 07/02/171916 for Tremaine Enriquez MD ED HPI GENERAL MEDICAL PROBLEM - General Chief Complaint: Cardiovascular Problem Stated Complaint: AMBULANCE Time Seen by Provider: 07/02/17 17:13 Source of Information: Reports: Patient, RN, RN Notes Reviewed History Limitations: Reports: No Limitations - History of Present Illness INITIAL COMMENTS - FREE TEXT/NARRATIVE: Patient was sent from clinic by [facility] with complaint of shortness of breath, orthopnea, edema and 18 pound weight gain over the last 2 weeks. Patient was recently discharged from [facility] where she was treated for an GI bleed. Denies any abdominal pain at this time. She admits to some pressure sensation in her chest, generalized fatigue or weakness. Denies fever or chills. Onset: Gradual Duration: Getting Worse Location: Reports: Chest Quality: Reports: Ache Severity: Severe Improves with: Reports: None Worsens with: Reports: None Associated Symptoms: Reports: No Other Symptoms Lower Abdomen Pain Score (Numeric/FACES): 6 - Related Data Allergies Allergy/AdvReac Type Severity Reaction Status Date / Time cephalexin Allergy Hives Verified 07/02/17 17:09 lisinopril AdvReac Cough Verified 07/02/17 17:09 dust AdvReac Sneezing Uncoded 07/02/17 17:09 Home Meds: Home Meds DULoxetine HCl [Cymbalta] 60 mg PO BID 07/18/13 [History] Famotidine 20 mg PO BID 07/18/13 [History] Simvastatin 10 mg PO BEDTIME 07/18/13 [History] Acetaminophen 325 mg PO ASDIRECTED PRN 10/20/16 [History] Aspirin 81 mg PO BRK 10/20/16 [History] Clopidogrel [Plavix] 75 mg PO DAILY 10/20/16 [History] Carvedilol [Coreg] 25 mg PO BID 02/21/17 [History] Insulin Aspart [NovoLOG] 14 unit SUBCUT TIDMEALS 02/21/17 [History] Insulin Detemir [Levemir] 14 unit SUBCUT BEDTIME 02/21/17 [History] Pregabalin [Lyrica] 25 mg PO BID 02/21/17 [History] Clarithromycin [Biaxin] 500 mg PO DAILY 07/02/17 [History] Pantoprazole Sodium [Protonix] 40 mg PO DAILY 07/02/17 [History] metroNIDAZOLE [Flagyl] 500 mg PO 07/02/17 [History] Past Medical History HEENT History: Reports: Cataract, Impaired Vision, Sinusitis, Other (See Below) Other HEENT History: wear reading glasses. HX OF PERITONSILLAR ABSCESS Cardiovascular History: Reports: Bypass, Heart Failure, High Cholesterol, Hypertension, Pacemaker, Other (See Below) Other Cardiovascular History: EDEMA Gastrointestinal History: Reports: Bowel Obstruction, Other (See Below) ( abdominal pain) Genitourinary History: Reports: Chronic Renal Insuffiency, UTI, Recurrent, Other (See Below) Other Genitourinary History: CKD III. 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: Fibroids (uterus), , Other (See Below) Musculoskeletal History: Reports: Arthritis, Fracture, Osteoarthritis, Other ( See Below) (fracture malleolus right ankle, closed.) Other Musculoskeletal History: chronic generalized pain Neurological History: Reports: Neuropathy, Diabetic Psychiatric History: Reports: Anxiety, Depression Other Psychiatric History: recovering alcoholic Endocrine/Metabolic History: Reports: Diabetes, Type II, Hyperparathyroidism Hematologic History: Reports: Anemia, Blood Transfusion(s), Iron Deficiency Oncologic (Cancer) History: Reports: None Dermatologic History: Reports: Cellulitis - Infectious Disease History Infectious Disease History: Reports: None - Past Surgical History HEENT Surgical History: Reports: Cataract Surgery Cardiovascular Surgical History: Reports: Coronary Artery Bypass, Pacer, Other ( See Below) Other Cardiovascular Surgeries/Procedures: quadruple GI Surgical History: Reports: Colonoscopy, EGD Female Surgical History: Reports: None Musculoskeletal Surgical History: Reports: Other (See Below) Other Musculoskeletal Surgeries/Procedures:: right ankle - plates/pins, deformity Social & Family History - Family History Family Medical History: Noncontributory Cardiac: Reports: High Cholesterol, Hypertension Respiratory: Reports: Asthma, COPD Other Respiratory Family Hisory: Sisters Endocrine/Metabolic: Reports: Diabetes, type II - Tobacco Use Smoking Status *Q: Former Smoker Used Tobacco, but Quit: Yes Month/Year Tobacco Last Used: 1997 Second Hand Smoke Exposure: No - Caffeine Use Caffeine Use: Reports: Coffee, Soda, Tea - Alcohol Use Days Per Week of Alcohol Use: 0 - Recreational Drug Use Recreational Drug Use: No Drug Use in Last 12 Months: Yes Recreational Drug Type: Reports: Methamphetamine Recreational Drug Use Frequency: Binges Recreational Drug Last Use: 06/19/2017 - Living Situation & Occupation Living situation: Reports: with Family Occupation: Retired ED ROS GENERAL - Review of Systems Review Of Systems: ROS reveals no pertinent complaints other than HPI. ED EXAM, GENERAL - Physical Exam Exam: See Below Exam Limited By: No Limitations General Appearance: Alert, No Apparent Distress, Other (chronically ill, but nontoxic appearing. ) Eye Exam: Bilateral Eye: Normal Inspection Ears: Other (chronically hard of hearing.) Nose: Normal Inspection, Normal Mucosa, No Blood Throat/Mouth: Normal Inspection, Normal Lips, Normal Teeth, Normal Gums, Normal Oropharynx, Normal Voice, No Airway Compromise Head: Atraumatic, Normocephalic Neck: Normal Inspection, Supple, Non-Tender, Full Range of Motion Respiratory/Chest: No Respiratory Distress, No Accessory Muscle Use, Chest Non- Tender, Decreased Breath Sounds, Crackles, Rales Cardiovascular: Regular Rate, Rhythm, Systolic Murmur, Other (+2 pitting edema to knees bilateral) GI/Abdominal: Normal Bowel Sounds, Soft, Non-Tender, No Organomegaly, No Distention, No Abnormal Bruit, No Mass (Female) Exam: Deferred Rectal (Female) Exam: Deferred Back Exam: Normal Inspection, Full Range of Motion, NT Extremities: Normal Inspection, Normal Range of Motion, Non-Tender, Normal Capillary Refill, No Pedal Edema Neurological: Alert, Oriented, CN II-XII Intact, Normal Cognition, Normal Gait, Normal Reflexes, No Motor/Sensory Deficits Psychiatric: Normal Affect, Normal Mood Skin Exam: Warm, Dry, Intact, Normal Color, No Rash EKG INTERPRETATION EKG Date: 07/02/17 Time: 17:13 Rhythm: Other (sinus rhythm) Rate (Beats/Min): 84 [place]: Normal P-Wave: Present QRS: LBBB ST-T: Normal QT: Normal Course - Vital Signs Last Recorded V/S: Last Vital Signs Temp 36.0 C 07/02/17 17:10 Pulse 84 07/02/17 17:10 Resp 18 07/02/17 17:10 BP 213/95 H 07/02/17 17:10 Pulse Ox 98 07/02/17 17:10 - Orders/Labs/Meds Orders: Active Orders 24 hr Category Date Time Status EKG 12 Lead [EKG Documentation Completion] [RC] STAT Care 07/02/17 17:17 Active Peripheral IV Care [RC] . DIRECTED Care 07/02/17 17:21 Active DRUG SCREEN URINE BIORAD [URCHEM] Stat Lab 07/02/17 17:32 Ordered UA W/MICROSCOPIC [URIN] Stat Lab 07/02/17 17:27 Ordered Sodium Chloride 0.9% [Saline Flush] Med 07/02/17 17:21 Active 10 ml FLUSH ASDIRECTED PRN Peripheral IV Insertion Adult [OM.PC] Stat Oth 07/02/17 17:16 Ordered Medication Orders Sodium Chloride (Saline Flush) 10 ml FLUSH ASDIRECTED PRN PRN Reason: Keep Vein Open Last Admin: 07/02/17 17:23 Dose: 10 ml Labs: Laboratory Tests 07/02/17 07/02/17 07/02/17 Range/Units 17:24 17:24 17:24 WBC 4.9 L (5.0-10.0) 10^3/uL RBC 2.93 L (4.2-5.4) 10^6/uL Hgb 8.9 L D (12.0-16.0) g/dL Hct 27.4 L (37.0-47.0) % MCV 93.5 D (80-100) fL MCH 30.4 (27.0-34.0) pg MCHC 32.5 L (33.0-35.0) g/dL Plt Count 219 (150-450) 10^3/uL Neut % (Auto) 56.4 (42.2-75.2) % Lymph % (Auto) 28.5 (20.5-50.1) % [place] % (Auto) 12.0 H (2-8) % Eos % (Auto) 2.9 (1.0-3.0) % Baso % (Auto) 0.2 (0.0-1.0) % PT 9.4 (9.0-12.0) SEC INR 0.9 (0.9-1.2) APTT 23.4 (22.0-34.0) SEC Sodium 134 L (135-145) mmol/L Potassium 4.1 (3.6-5.0) mmol/L Chloride 102 (101-111) mmol/L Carbon Dioxide 27.0 (21.0-31.0) mmol/L Anion Gap 9.1 BUN 38 H (7-18) mg/dL Creatinine 2.1 H (0.6-1.3) mg/dL Est Cr Clr Drug Dosing 24.60 mL/min Estimated GFR (MDRD) 24 BUN/Creatinine Ratio 18.09 Glucose 336 H (74-105) mg/dL Calcium 7.7 L (8.4-10.2) mg/dl Total Bilirubin 0.4 (0.2-1.0) mg/dL AST 39 (10-42) IU/L ALT 47 (10-60) IU/L Alkaline Phosphatase 160 H (42-121) IU/L Creatine Kinase (26-174) IU/L Creatine Kinase Index (0-2.4) % CK-MB (CK-2) (0.4-4.7) ng/mL Troponin I 0.02 (0.00-0.02) ng/ml Total Protein 5.4 L (6.7-8.2) g/dl Albumin 1.9 L (3.2-5.5) g/dl Globulin 3.5 Albumin/Globulin Ratio 0.54 Amylase 57 (28-100) U/L Lipase 21 L (22-51) U/L Urine Color (YELLOW) Urine Appearance (CLEAR) Urine pH (5.0-9.0) Ur Specific [place] (1.005-1.030) Urine Protein (NEGATIVE) Urine Glucose (UA) (NEGATIVE) Urine Ketones (NEGATIVE) Urine Occult Blood (NEGATIVE) Urine Nitrite (NEGATIVE) Urine Bilirubin (NEGATIVE) Urine Urobilinogen (0.2-1.0) mg/dL Ur Leukocyte Esterase (NEGATIVE) Urine RBC /HPF Urine WBC (0-5/HPF) /HPF Ur Epithelial Cells /HPF Urine Bacteria (0-FEW/HPF) /HPF Urine Opiates Screen (NEGATIVE) Ur Oxycodone Screen (NEGATIVE) Urine Methadone Screen (NEGATIVE) Ur Barbiturates Screen (NEGATIVE) U Tricyclic Antidepress (NEGATIVE) Ur Phencyclidine Scrn (NEGATIVE) Ur Amphetamine Screen (NEGATIVE) U Methamphetamines Scrn (NEGATIVE) Urine MDMA Screen (NEGATIVE) U Benzodiazepines Scrn (NEGATIVE) Urine Cocaine Screen (NEGATIVE) U Marijuana (THC) Screen (NEGATIVE) Ethyl Alcohol < 5 mg/dL 07/02/17 07/02/17 07/02/17 Range/Units 17:24 17:27 17:32 WBC (5.0-10.0) 10^3/uL RBC (4.2-5.4) 10^6/uL Hgb (12.0-16.0) g/dL Hct (37.0-47.0) % MCV (80-100) fL MCH (27.0-34.0) pg MCHC (33.0-35.0) g/dL Plt Count (150-450) 10^3/uL Neut % (Auto) (42.2-75.2) % Lymph % (Auto) (20.5-50.1) % [place] % (Auto) (2-8) % Eos % (Auto) (1.0-3.0) % Baso % (Auto) (0.0-1.0) % PT (9.0-12.0) SEC INR (0.9-1.2) APTT (22.0-34.0) SEC Sodium (135-145) mmol/L Potassium (3.6-5.0) mmol/L Chloride (101-111) mmol/L Carbon Dioxide (21.0-31.0) mmol/L Anion Gap BUN (7-18) mg/dL Creatinine (0.6-1.3) mg/dL Est Cr Clr Drug Dosing mL/min Estimated GFR (MDRD) BUN/Creatinine Ratio Glucose (74-105) mg/dL Calcium (8.4-10.2) mg/dl Total Bilirubin (0.2-1.0) mg/dL AST (10-42) IU/L ALT (10-60) IU/L Alkaline Phosphatase (42-121) IU/L Creatine Kinase 80 (26-174) IU/L Creatine Kinase Index 2.1 (0-2.4) % CK-MB (CK-2) 1.70 (0.4-4.7) ng/mL Troponin I (0.00-0.02) ng/ml Total Protein (6.7-8.2) g/dl Albumin (3.2-5.5) g/dl Globulin Albumin/Globulin Ratio Amylase (28-100) U/L Lipase (22-51) U/L Urine Color Light yellow (YELLOW) Urine Appearance Slightly cloudy (CLEAR) Urine pH 7.0 (5.0-9.0) Ur Specific [place] 1.020 (1.005-1.030) Urine Protein >=300 H (NEGATIVE) Urine Glucose (UA) 500 H (NEGATIVE) Urine Ketones Negative (NEGATIVE) Urine Occult Blood Small H (NEGATIVE) Urine Nitrite Negative (NEGATIVE) Urine Bilirubin Negative (NEGATIVE) Urine Urobilinogen 0.2 (0.2-1.0) mg/dL Ur Leukocyte Esterase Negative (NEGATIVE) Urine RBC 0-5 /HPF Urine WBC 0-5 (0-5/HPF) /HPF Ur Epithelial Cells Moderate H /HPF Urine Bacteria Moderate H (0-FEW/HPF) /HPF Urine Opiates Screen Negative (NEGATIVE) Ur Oxycodone Screen Negative (NEGATIVE) Urine Methadone Screen Negative (NEGATIVE) Ur Barbiturates Screen Negative (NEGATIVE) U Tricyclic Antidepress Negative (NEGATIVE) Ur Phencyclidine Scrn Negative (NEGATIVE) Ur Amphetamine Screen Negative (NEGATIVE) U Methamphetamines Scrn Negative (NEGATIVE) Urine MDMA Screen Negative (NEGATIVE) U Benzodiazepines Scrn Negative (NEGATIVE) Urine Cocaine Screen Negative (NEGATIVE) U Marijuana (THC) Screen Negative (NEGATIVE) Ethyl Alcohol mg/dL Meds: Medications Generic Name Dose Route Start Last Admin Trade Name Freq PRN Reason Stop Dose Admin Sodium Chloride 10 ml 07/02/17 17:21 07/02/17 17:23 Saline Flush FLUSH 10 ml ASDIRECTED PRN Administration Keep Vein Open Discontinued Medications Generic Name Dose Route Start Last Admin Trade Name Freq PRN Reason Stop Dose Admin Aspirin 324 mg 07/02/17 17:21 07/02/17 17:25 Aspirin PO 07/02/17 17:22 324 mg ONETIME ONE Administration Furosemide 40 mg 07/02/17 17:55 07/02/17 18:04 Lasix IVPUSH 07/02/17 17:56 40 mg NOW ONE Administration Labetalol HCl 20 mg 07/02/17 18:51 07/02/17 18:56 Normodyne IVPUSH 07/02/17 18:52 20 mg NOW ONE Administration Protocol - Radiology Interpretation Free Text/Narrative:: CXR from clinic from today: CHF per Rad. report. Departure - Departure Time of Disposition: 18:51 Disposition: DC/Tfer to Acute Hospital 02 Reason for Transfer *Q: Primary PCI Indicated Condition: Poor Clinical Impression: Hypertension, uncontrolled CHF (congestive heart failure) Qualifiers: Heart failure type: diastolic Heart failure chronicity: acute Qualified Code(s) : I50.31 - Acute diastolic (congestive) heart failure Diabetes mellitus type 2, uncontrolled Qualifiers: Diabetes mellitus terminal supervisor insulin use: unspecified terminal supervisor insulin use status Diabetes mellitus complication status: with kidney complications Diabetes mellitus complication detail: with chronic kidney disease Chronic kidney disease stage: unspecified stage Qualified Code(s): E11.22 - Type 2 diabetes mellitus with diabetic chronic kidney disease; E11.65 - Type 2 diabetes mellitus with hyperglycemia Anemia Qualifiers: Anemia type: unspecified type Qualified Code(s): D64.9 - Anemia, unspecified Forms: ED Department Discharge, Interfacility Transfer EMTALA - My Orders Last 24 Hours: My Active Orders 07/02/17 17:16 Peripheral IV Insertion Adult [OM.PC] Stat 07/02/17 17:17 EKG 12 Lead [EKG Documentation Completion] [RC] STAT 07/02/17 17:21 Peripheral IV Care [RC] . DIRECTED Sodium Chloride 0.9% [Saline Flush] 10 ml FLUSH ASDIRECTED PRN 07/02/17 17:27 UA W/MICROSCOPIC [URIN] Stat 07/02/17 17:32 DRUG SCREEN URINE BIORAD [URCHEM] Stat - Assessment/Plan Last 24 Hours: My Active Orders 07/02/17 17:16 Peripheral IV Insertion Adult [OM.PC] Stat 07/02/17 17:17 EKG 12 Lead [EKG Documentation Completion] [RC] STAT 07/02/17 17:21 Peripheral IV Care [RC] . DIRECTED Sodium Chloride 0.9% [Saline Flush] 10 ml FLUSH ASDIRECTED PRN 07/02/17 17:27 UA W/MICROSCOPIC [URIN] Stat 07/02/17 17:32 DRUG SCREEN URINE BIORAD [URCHEM] Stat I have read and agree with the documentation that has been completed regarding this visit. By signing this record, I attest that the documentation was completed in my physical presence and is an accurate record of the encounter.
[2017-07-02 19:45] VITALS: BP 200/94
--- NOTE | 2017-07-04 12:32 | EKG ---
07/02/2017 - LIZETTE MCGARRY SHARA - TIME: 5:13 p.m. After my reading, sinus rhythm at 84. [facility] /[id number]
== END 2017-07-02 19:46 ==
LOC: DL.ED 17:12
DX: I13.0 Hypertensive heart and chronic kidney disease with heart failure and stage 1 through stage 4 chronic kidney disease, or unspecified chronic kidney disease (principal); I50.31 Acute diastolic (congestive) heart failure; E11.22 Type 2 diabetes mellitus with diabetic chronic kidney disease; E11.65 Type 2 diabetes mellitus with hyperglycemia; D64.9 Anemia, unspecified; N18.3 Chronic kidney disease, stage 3 (moderate); E11.319 Type 2 diabetes mellitus with unspecified diabetic retinopathy without macular edema; E11.40 Type 2 diabetes mellitus with diabetic neuropathy, unspecified; E78.00 Pure hypercholesterolemia, unspecified; Z88.1 Allergy status to other antibiotic agents; Z88.8 Allergy status to other drugs, medicaments and biological substances; Z91.048 Other nonmedicinal substance allergy status; Z79.899 Other long term (current) drug therapy; Z79.4 Long term (current) use of insulin; Z87.891 Personal history of nicotine dependence
CPT/HCPCS: 36415; 80053; 80305; 81001; 82150; 82550; 82553; 83690; 84484; 85025; 85610; 85730; 93005; 93010; 96374; 96375; 99285; A9270; G0480; J1940; J3490; J7050

== ENCOUNTER 2019-01-14 14:56 | Emergency (ER) | payer MEDICARE, MEDICAID ==
[2019-01-14 14:59] VITALS: BP 128/52
--- NOTE | 2019-01-14 15:11 | EDM.PDOC ---
ED HPI GENERAL MEDICAL PROBLEM - General Chief Complaint: Abdominal Pain Stated Complaint: UNKNOWN-AMBULANCE Time Seen by Provider: 01/14/19 15:10 Source of Information: Reports: Patient, EMS, EMS Notes Reviewed, RN, RN Notes Reviewed History Limitations: Reports: Other ([place]) - History of Present Illness INITIAL COMMENTS - FREE TEXT/NARRATIVE: Patient presents to ER per [facility] with complaint of increased shortness of breath since last night. She states she is on hemodialysis 3 times weekly in [place] on Sunday, Sunday and Sunday. States she last ran dialysis yesterday. Admits to cough. Denies asthma or COPD. She has had fever, chills, shortness of breath, diarrhea, and pain in chest with breathing. No nausea or vomiting. Onset Date: 01/13/19 Duration: Getting Worse Location: Reports: Chest Severity: Moderate Improves with: Reports: None Worsens with: Reports: None Associated Symptoms: Reports: No Other Symptoms Abdomen Pain Score (Numeric/FACES): 7 - Related Data Allergies Allergy/AdvReac Type Severity Reaction Status Date / Time cephalexin Allergy Hives Verified 07/02/17 17:09 lisinopril AdvReac Cough Verified 07/02/17 17:09 dust AdvReac Sneezing Uncoded 07/02/17 17:09 Home Meds: Home Meds DULoxetine HCl [Cymbalta] 60 mg PO BID 07/18/13 [History] Famotidine 20 mg PO BID 07/18/13 [History] Simvastatin 10 mg PO BEDTIME 07/18/13 [History] Acetaminophen 325 mg PO ASDIRECTED PRN 10/20/16 [History] Aspirin 81 mg PO BRK 10/20/16 [History] Clopidogrel [Plavix] 75 mg PO DAILY 10/20/16 [History] Carvedilol [Coreg] 25 mg PO BID 02/21/17 [History] Insulin Aspart [NovoLOG] 14 unit SUBCUT TIDMEALS 02/21/17 [History] Insulin Detemir [Levemir] 14 unit SUBCUT BEDTIME 02/21/17 [History] Pregabalin [Lyrica] 25 mg PO BID 02/21/17 [History] Clarithromycin [Biaxin] 500 mg PO DAILY 07/02/17 [History] Pantoprazole Sodium [Protonix] 40 mg PO DAILY 07/02/17 [History] metroNIDAZOLE [Flagyl] 500 mg PO 07/02/17 [History] Brimonidine Tartrate [Brimonidine Tartrate 0.2% Ophth Soln] 1 drop EYEBOTH BID 01/14/19 [History] Bumetanide 1 mg PO TID 01/14/19 [History] Calcium Acetate [Phoslyra] 2 tab PO TID 01/14/19 [History] Levothyroxine Sodium [Euthyrox] 0.05 mg PO DAILY 01/14/19 [History] Vitamin B Complex 1 tab PO 01/14/19 [History] amLODIPine Besylate [Amlodipine Besylate] 10 mg PO DAILY 01/14/19 [History] metOLazone [Metolazone] 5 mg PO DAILY 01/14/19 [History] rOPINIRole HCl [Requip] 0.25 mg PO BEDTIME 01/14/19 [History] Past Medical History HEENT History: Reports: Cataract, Impaired Vision, Sinusitis, Other (See Below) Other HEENT History: wear reading glasses. HX OF PERITONSILLAR ABSCESS Cardiovascular History: Reports: Bypass, Heart Failure, High Cholesterol, Hypertension, Pacemaker, Other (See Below) Other Cardiovascular History: EDEMA Gastrointestinal History: Reports: Bowel Obstruction, Other (See Below) Genitourinary History: Reports: Chronic Renal Insuffiency, UTI, Recurrent, Other (See Below) Other Genitourinary History: CKD III. 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, , Other (See Below) Musculoskeletal History: Reports: Arthritis, Fracture, Osteoarthritis, Other ( See Below) (fracture malleolus right ankle, closed.) Other Musculoskeletal History: chronic generalized pain Neurological History: Reports: Neuropathy, Diabetic Psychiatric History: Reports: Anxiety, Depression Other Psychiatric History: recovering alcoholic Endocrine/Metabolic History: Reports: Diabetes, Type II, Hyperparathyroidism Hematologic History: Reports: Anemia, Blood Transfusion(s), Iron Deficiency Oncologic (Cancer) History: Reports: None Dermatologic History: Reports: Cellulitis - Infectious Disease History Infectious Disease History: Reports: None - Past Surgical History HEENT Surgical History: Reports: Cataract Surgery Cardiovascular Surgical History: Reports: Coronary Artery Bypass, Pacer, Other ( See Below) Other Cardiovascular Surgeries/Procedures: quadruple GI Surgical History: Reports: Colonoscopy, EGD Female Surgical History: Reports: None Musculoskeletal Surgical History: Reports: Other (See Below) Other Musculoskeletal Surgeries/Procedures:: right ankle - plates/pins, deformity Social & Family History - Family History Family Medical History: Noncontributory Cardiac: Reports: High Cholesterol, Hypertension Respiratory: Reports: Asthma, COPD Other Respiratory Family Hisory: Sisters Endocrine/Metabolic: Reports: Diabetes, type II - Caffeine Use Caffeine Use: Reports: Coffee, Soda, Tea - Living Situation & Occupation Living situation: Reports: with Family Occupation: Retired ED ROS GENERAL - Review of Systems Review Of Systems: ROS reveals no pertinent complaints other than HPI. ED EXAM, GENERAL - Physical Exam Exam: See Below Exam Limited By: No Limitations General Appearance: Other (disorientated at times. ) Eye Exam: Bilateral Eye: EOMI, Normal Inspection, PERRL Ears: Normal External Exam, Normal Canal, Hearing Grossly Normal, Normal TMs Nose: Normal Inspection, Normal Mucosa, No Blood Throat/Mouth: Normal Inspection, Normal Lips, Normal Teeth, Normal Gums, Normal Oropharynx, Normal Voice, No Airway Compromise Head: Atraumatic, Normocephalic Neck: Normal Inspection, Supple, Non-Tender, Full Range of Motion Respiratory/Chest: Crackles (diminished in bases bilaterally) Cardiovascular: Systolic Murmur GI/Abdominal: Normal Bowel Sounds (Female) Exam: Deferred Rectal (Female) Exam: Deferred Back Exam: Normal Inspection, Full Range of Motion, NT Extremities: Normal Inspection, Normal Range of Motion, Non-Tender, Normal Capillary Refill, No Pedal Edema Neurological: Alert, Oriented, CN II-XII Intact, Normal Cognition, Normal Gait, Normal Reflexes, No Motor/Sensory Deficits Psychiatric: Anxious Skin Exam: Warm Lymphatic: No Adenopathy Course - Vital Signs Last Recorded V/S: Last Vital Signs Temp 99.6 F 01/14/19 14:48 Pulse 76 01/14/19 15:37 Resp 20 01/14/19 14:48 BP 128/52 L 01/14/19 14:48 Pulse Ox 93 L 01/14/19 14:48 - Orders/Labs/Meds Orders: Active Orders 24 hr Category Date Time Status EKG Documentation Completion [RC] STAT Care 01/14/19 15:20 Active RT Aerosol Therapy [RC] ASDIRECTED Care 01/14/19 15:21 Active CULTURE BLOOD [BC] Stat Lab 01/14/19 15:32 Received CULTURE BLOOD [BC] Stat Lab 01/14/19 15:37 Received Blood Culture x2 Reflex Set [OM.PC] Stat Oth 01/14/19 15:21 Ordered Labs: Laboratory Tests 01/14/19 01/14/19 01/14/19 Range/Units 15:37 15:37 15:37 WBC 14.8 H (5.0-10.0) 10^3/uL RBC 3.17 L (4.2-5.4) 10^6/uL Hgb 9.9 L (12.0-16.0) g/dL Hct 30.3 L (37.0-47.0) % MCV 95.6 (80-100) fL MCH 31.2 (27.0-34.0) pg MCHC 32.7 L (33.0-35.0) g/dL Plt Count 155 (150-450) 10^3/uL Neut % (Auto) 90.7 H (42.2-75.2) % Lymph % (Auto) 2.2 L (20.5-50.1) % [place] % (Auto) 7.0 (2-8) % Eos % (Auto) 0.0 L (1.0-3.0) % Baso % (Auto) 0.1 (0.0-1.0) % Sodium 131 L (135-145) mmol/L Potassium 3.8 (3.6-5.0) mmol/L Chloride 94 L (101-111) mmol/L Carbon Dioxide 22.0 (21.0-31.0) mmol/L Anion Gap 18.8 BUN 43 H (7-18) mg/dL Creatinine 5.2 H D (0.6-1.3) mg/dL Est Cr Clr Drug Dosing 9.69 mL/min Estimated GFR (MDRD) 8 BUN/Creatinine Ratio 8.26 Glucose 207 H (74-105) mg/dL Lactic Acid 1.5 (0.5-2.2) mmol/L Calcium 7.9 L (8.4-10.2) mg/dl Total Bilirubin 1.5 H (0.2-1.0) mg/dL AST 19 (10-42) IU/L ALT 11 (10-60) IU/L Alkaline Phosphatase 245 H (42-121) IU/L B-Natriuretic Peptide 3700 H (0-100) pg/ml Total Protein 7.1 (6.7-8.2) g/dl Albumin 2.6 L (3.2-5.5) g/dl Globulin 4.5 Albumin/Globulin Ratio 0.58 Meds: Medications Discontinued Medications Generic Name Dose Route Start Last Admin Trade Name Freq PRN Reason Stop Dose Admin Albuterol/Ipratropium 3 ml 01/14/19 15:21 01/14/19 15:35 Duoneb 3.0-0.5 Mg/3 Ml NEB 01/14/19 15:22 3 ml ONETIME ONE Administration - Radiology Interpretation Free Text/Narrative:: chest xray: Probable interval cardiovascular decompensation i.e.CHF since Apr 2015 See rad report - Re-Assessments/Exams Free Text/Narrative Re-Assessment/Exam: 01/14/19 18:07 Discussed patient case with Dr. Nj who agreed to accept the patient for transfer to [facility] in [place]. Departure - Departure Time of Disposition: 18:10 Disposition: DC/Tfer to Acute Hospital 02 Condition: Fair Clinical Impression: Chronic kidney disease requiring chronic dialysis CHF (congestive heart failure) Qualifiers: Heart failure type: diastolic Heart failure chronicity: acute Qualified Code(s) : I50.31 - Acute diastolic (congestive) heart failure Diabetes mellitus type 2, uncontrolled Qualifiers: Glycemic state: with hyperglycemia Qualified Code(s): E11.65 - Type 2 diabetes mellitus with hyperglycemia Leukocytosis Qualifiers: Leukocytosis type: unspecified Qualified Code(s): D72.829 - Elevated white blood cell count, unspecified - Discharge Information *PRESCRIPTION DRUG MONITORING PROGRAM REVIEWED*: No *COPY OF PRESCRIPTION DRUG MONITORING REPORT IN PATIENT SINDI: No Forms: ED Department Discharge, Interfacility Transfer EMTALA - My Orders Last 24 Hours: My Active Orders 01/14/19 15:20 EKG Documentation Completion [RC] STAT 01/14/19 15:21 RT Aerosol Therapy [RC] ASDIRECTED Blood Culture x2 Reflex Set [OM.PC] Stat 01/14/19 15:32 CULTURE BLOOD [BC] Stat 01/14/19 15:37 CULTURE BLOOD [BC] Stat - Assessment/Plan Last 24 Hours: My Active Orders 01/14/19 15:20 EKG Documentation Completion [RC] STAT 01/14/19 15:21 RT Aerosol Therapy [RC] ASDIRECTED Blood Culture x2 Reflex Set [OM.PC] Stat 01/14/19 15:32 CULTURE BLOOD [BC] Stat 01/14/19 15:37 CULTURE BLOOD [BC] Stat
[2019-01-14] MEDS: Albuterol/Ipratropium 3.0-0.5 MG/3 ML Neb Soln NEB ONE (15:35)
[2019-01-14 15:39] VITALS: PULSE 76
--- NOTE | 2019-01-14 15:54 | CR ---
EXAMINATION: Chest 1V Frontal SEX: Female AGE: 63 years CLINICAL HISTORY: 63-year-old female ER Department complaining of chest pain. History "right lung mass and liver lesion". Comparison film to April 2015. INTERPRETATION: Abnormal. Increased cardiac size and generalized pulmonary venous congestion/cephalization suggesting heart failure. Cardiac pacemaker leads intact and unchanged since April 2015 this patient with sternotomy wires. No alveolar edema or dependent pleural fluid accumulation. No lung mass or focal lobar pneumonia, atelectasis or collapse. No pneumothorax. CONCLUSION: Probable interval cardiovascular decompensation i.e. CHF (EKG? BNP? Weight?) since April 2015.
[2019-01-14 16:05] LABS: ANION GAP 18.8
== END 2019-01-14 19:18 ==
LOC: DL.ED 14:56
DX: I13.0 Hypertensive heart and chronic kidney disease with heart failure and stage 1 through stage 4 chronic kidney disease, or unspecified chronic kidney disease (principal); E11.22 Type 2 diabetes mellitus with diabetic chronic kidney disease; N18.3 Chronic kidney disease, stage 3 (moderate); I50.31 Acute diastolic (congestive) heart failure; E11.319 Type 2 diabetes mellitus with unspecified diabetic retinopathy without macular edema; E11.40 Type 2 diabetes mellitus with diabetic neuropathy, unspecified; E03.9 Hypothyroidism, unspecified; E78.5 Hyperlipidemia, unspecified; F32.9 Major depressive disorder, single episode, unspecified; F41.9 Anxiety disorder, unspecified; E11.65 Type 2 diabetes mellitus with hyperglycemia; D72.829 Elevated white blood cell count, unspecified; Z79.4 Long term (current) use of insulin; Z88.1 Allergy status to other antibiotic agents; Z88.8 Allergy status to other drugs, medicaments and biological substances; Z91.09 Other allergy status, other than to drugs and biological substances; Z79.82 Long term (current) use of aspirin; Z79.899 Other long term (current) drug therapy; Z79.02 Long term (current) use of antithrombotics/antiplatelets; Z95.1 Presence of aortocoronary bypass graft; Z99.2 Dependence on renal dialysis
CPT/HCPCS: 36415; 71045; 80053; 83605; 83880; 85025; 87040; 87077; 87186; 93005; 94640; 99285-25; J7620-GY